=== PATIENT | female | born 1970 | race Caucasian/White ===

== ENCOUNTER 2017-11-07 00:34 | Emergency (ER) | payer MEDICAID ==
--- NOTE | 2017-11-07 00:59 | ED Physician Chart ---
ED Chief Complaint/HPI - Patient Information Date Seen:: 11/07/17 Time Seen:: 00:50 Chief Complaint:: right shoulder pain History of Present Illness:: Patient has had pain in her right shoulder for 3 days. Pain radiates from her shoulder distally to her proximal right proximal forearm. 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 No other trauma. Patient is right-hand dominant Allergies:: Allergies Allergy/AdvReac Type Severity Reaction Status Date / Time No Known Allergies Allergy Verified 11/07/17 00:50 Historian:: Patient, Family Member Review:: Nurse's Note Reviewed ED Review of Systems - Review of Systems General/Constitutional: No fever, No chills Skin: No skin lesions Head: No headache Eyes: No loss of vision ENT: No earache Neck: No neck pain Cardio Vascular: No chest pain Pulmonary: No SOB GI: No nausea G/U: No dysuria Musculoskeletal: Bone or joint pain Endocrine: No polyuria Psychiatric: No prior psych history, No anxiety Hematopoietic: No bruising Allergic/Immuno: No urticaria ED Past Medical History - Past Medical History Past Medical History: No significant medical hx Family History: HTN Social History: Non Smoker, No Alcohol Surgical History: Psychiatricy History: None Medication: Reviewed Family Medical History - Family Member Mother History Unknown: Yes Ethnicity: Hx Family Cancer: No Hx Family Coronary Artery Disease: No Hx Family Congestive Heart Failure: No Hx Family Hypertension: No Hx Family Stroke: No Hx Family Diabetes: No Hx Family Seizures: No Hx Family Dementia: No Hx Family AIDS: No Hx Family HIV: No Hx Family COPD: No Hx Family Hepatitis: No Hx Family Psychiatric Problems: No Hx Family Tuberculosis: No ED Physical Exam - Physical Examination General/Constitutional: Well-developed, well-nourished, Alert Other Gen/Cons comments:: Mild distress; holds right arm motionless with 90 right elbow flexion Head: Atraumatic Eyes: Lids, conjuctiva normal, PERRL Skin: Nl inspection, No rash, No skin lesions, No ecchymosis, Well hydrated, No lymphadenopathy ENMT: External ears, nose nl Neck: No nuchal rigidity Respiratory: Nl effort/Exclusion, Clear to Auscultation Cardio Vascular: RRR GI: No tenderness/rebounding/guarding : No CVA tenderness Other Extremities comments:: Right shoulder: Tenderness over the humeral head Neuro/Psych: Alert/oriented Misc: Normal back ED Labs/Radiology/EKG Results - Radiology Results Results: About 2 mm of calcium noted in soft tissue adjacent to the humeral head on x- ray. X-ray was otherwise normal. ED Assessment - Assessment General Assessment: Skin cleansed with Betadine solution performed. At the point of maximum tenderness over the head of the humerus about 2 mL of 1% lidocaine was injected for local anesthesia. Then 10 mL of 1% lidocaine was injected with a 20-gauge 1 inch long needle as deeply as the needle would go into the tissue. Patient's pain afterwards decreased from an 8 out of 10 to a 2 out of 10. ED Septic Shock - . Is Septic Shock (SBP<90, OR Lactate>4 mmol\L) present?: No ED Reassessment (Disposition) - Reassessment Reassessment Condition:: Improved - Diagnosis Diagnosis:: Calcific tendinitis right shoulder - Aftercare/Follow up Instructions Aftercare/Follow-Up Instructions:: Refer to Discharge Instructions Medication Prescribed:: Ibuprofen 400 mg #30 to take 1 3 times a day - Patient Disposition Discharge/Transfer:: Home Condition at Disposition:: Stable, Improved
--- NOTE | 2017-11-07 07:57 | Diagnostic Imaging Report ---
EXAM: Portable examination right shoulder joint HISTORY: Pain FINDINGS: Multiple views of right shoulder joint reviewed portably at 0131 hours.. The study demonstrates no evidence of fracture or dislocation. The acromion is intact. A 3 mm calcification in the superior lateral aspect of the right humeral head most likely represent was osteochondritis. Acromioclavicular joint is intact there is no evidence of separation The head of right humerus is well within the glenoid fossa. IMPRESSION: Normal examination of the right shoulder joint.
== END 2017-11-07 01:49 | disposition home or self-care (01) ==
LOC: ER 00:34
DX: M75.31 Calcific tendinitis of right shoulder (principal)
CPT/HCPCS: 99285; 96372; 20610; 73030; 81025; J1885